=== PATIENT | female | born 1950 | race Caucasian/White ===

== ENCOUNTER 2023-02-11 15:50 | Outpatient (CLI) | payer OTHER, SELFPAY ==
--- NOTE | ~2023-02-11 | CT_ITS ---
CT head without contrast Indication: Headache Technique: Serial scans were obtained through the brain without the administration of contrast. Dose reduction technique was used on this scan by utilizing automated exposure control and iterative recon struction technique. The dose-length product (DLP) was 605.33 mGy-cm. Findings: There is no evidence of intracranial hemorrhage, mass lesion, or acute infarct. The ventri cles and subarachnoid spaces are dilated, consistent with minimal atrophy. Low attenuation regions a re seen within the periventricular white matter bilaterally, likely representing changes from chronic microvascular ischemic disease. There is no evidence of edema, mass effect or midline shift. The v isualized paranasal sinuses and mastoid air cells are clear. Impression: No intracranial hemorrhage, mass, or acute infarct. Atrophy and chronic white matter changes, as above. Reviewed, dictated and finalized at location . Impression: No intracranial hemorrhage, mass, or acute infarct. Atrophy and chronic white matter changes, as above.
--- NOTE | ~2023-02-11 | CT_ITS ---
Noncontrast CT scan of the cervical spine Technique: Multiple contiguous axial [address] images of the cervical spine were obtained and rec onstructed in 2D sagittal and coronal planes on the acquisition scanner. Dose reduction technique was used on this scan by utilizing automated exposure control, adjustment of the mA and/or kV according to patient size. The dose-length product (DLP) was 103.37 mGy-cm. Clinical History: Pain Findings: No fracture identified. There is minimal grade 1 anterolisthesis of C3 over C4. There is se kurt degenerative disc narrowing at C4-C5. There is moderate degenerative disc narrowing at C5-C6 and C6-C7. There are uncovertebral degenerative changes from C3 through C7. There is bilateral neural fo raminal narrowing at C3-C4 with bilateral facet arthropathy, right worse than left. There is bilatera l neural foraminal narrowing at C4-C5, disc ossify complex present. There is probable mild bilateral neural foraminal narrowing at C5-C6. There is right neural foraminal narrowing at C6-C7. No preverteb ral soft tissue swelling. Impression: No fracture. Minimal grade 1 anterolisthesis of C3 over C4. Moderate degenerative spondylosis, as above. Reviewed, dictated and finalized at location . Impression: No fracture. Minimal grade 1 anterolisthesis of C3 over C4. Moderate degenerative spondylosis, as above.
== END 2023-02-11 15:51 | disposition home or self-care (01) ==
DX: M54.2 Cervicalgia (principal); M43.02 Spondylolysis, cervical region
CPT/HCPCS: 70450; 72125